=== PATIENT | male | born 1995 ===

== ENCOUNTER 2020-02-02 22:09 | Emergency (ER) | payer OTHER ==
[2020-02-02] MEDS ORDERED: ZIPRASIDONE MESYLATE 20 MG VIAL IM ONE (22:22)
--- NOTE | 2020-02-02 22:26 | Emergency Department Report ---
HPI - General Time Seen by Provider: 02/02/20 22:22 - HPI HPI: 24-year-old male presents to the emergency department via EMS from home for a mental health evaluation. EMS was contacted by family secondary to some bizarre behavior exhibited by the patient over the past few days. He has a history of schizophrenia and has not been taking his risperidone or buspirone for the past 4 months. The patient is oriented to person, place and the name of the president but claims to not know what year it is. When asked why his family may have called EMS the patient says "because I'm a badass motherfucker, that's why." Patient is continuously making some abnormal hand gestures in front of his face. For both family, and upon arrival here, the patient pretends to pass out but remains awake. Patient denies any suicidal or homicidal ideations. ED Past Medical Hx - Medications Home Medications: Home Medications Medication Instructions Recorded Confirmed Last Taken Type Buspirone HCl [busPIRone] 15 mg PO QHS 02/02/20 02/02/20 Unknown History risperiDONE [RisperDAL] 1 mg PO QHS 02/02/20 02/02/20 Unknown History ED Review of Systems ROS: Stated complaint: MH EVAL/OFF MEDS Other details as noted in HPI Comment: Unobtainable due to pts medical conditions Constitutional: denies: fever Respiratory: denies: shortness of breath Cardiovascular: denies: chest pain Neurological: denies: headache Psychiatric: denies: homicidal thoughts, suicidal thoughts Physical Exam - Physical Exam Physical Exam: GENERAL: The patient is well-developed well-nourished. HENT: Normocephalic. Atraumatic. Patient has moist mucous membranes. EYES: Extraocular motions are intact. NECK: Supple. Trachea is midline. CHEST/LUNGS: Clear to auscultation. There is no respiratory distress noted. HEART/CARDIOVASCULAR: Regular. There is mild tachycardia. There is no murmur. ABDOMEN: Abdomen is soft, nontender. Patient has normal bowel sounds. There is no abdominal distention. SKIN: Skin is warm and dry. NEURO: Patient is awake but is not always cooperative. AAO x2 to person and place but not time, but the patient does know the president. Cranial nerves appear intact. MUSCULOSKELETAL: There is no tenderness or deformity. There is no evidence of acute injury. PSYCH: Patient is disorganized. Inappropriate laughter. ED Medical Decision Making - Lab Data Result diagrams: 02/02/20 22:28 02/02/20 22:28 - Medical Decision Making This patient presents for a mental health evaluation. He has history of schizophrenia and has not taken his medications for the last 4 months. His nurse was able to speak with the patient's mother who tells us that the patient has been emotionally labile, ran away for a 3-week period of time, and he is a daily beer drinker. Unknown if he has alcohol dependence but the patient has been placed on CIWA protocol. Patient's labs are mostly unremarkable including CBC, metabolic panel, blood alcohol level and urine drug screen. The patient has been made a 1013 secondary to his acute psychosis as he is unable to care for himself in his current state. He will be seen by the psychiatric team in the morning. This patient is medically cleared for psychiatric placement. Critical Care Time: No Critical care attestation.: If time is entered above; I have spent that time in minutes in the direct care of this critically ill patient, excluding procedure time. ED Disposition Clinical Impression: Acute psychosis Disposition: [id number]/TX-[id number] PSY HOSP/PSY UNIT Is pt being admited?: No Condition: Stable Referrals: PRIMARY MD JOSE [Primary Care Provider] - 3-5 Days Time of Disposition: 05:53
[2020-02-02 23:11] LABS: Basophils # (Auto) 0.1 K/mm3 (0.0-0.1); Basophils % (Auto) 0.9 % (0.0-1.8); Eosinophils # (Auto) 0.1 K/mm3 (0.0-0.4); Eosinophils % (Auto) 0.7 % (0.0-4.3); Hematocrit 46.5 % (35.5-45.6); Hemoglobin 15.4 gm/dl (11.8-15.2); Lymphocytes # (Auto) 4.4 K/mm3 (1.2-5.4); Lymphocytes % (Auto) 33.7 % (13.4-35.0); Mean Corpuscular HGB Conc 33 % (32-34); Mean Corpuscular Volume 83 fl (84-94); Monocytes % (Auto) 7.7 % (0.0-7.3); Platelet Count 361 K/mm3 (140-440); Red Cell Distribution Width 16.5 % (13.2-15.2)
[2020-02-02 23:34] LABS: BUN/Creatinine Ratio 4; Blood Urea Nitrogen 4 mg/dL (9-20); Calcium 9.9 mg/dL (8.4-10.2); Hemolysis Index 2
[2020-02-02 23:58] LABS: Bilirubin,Urine NEG (Negative); Blood,Urine NEG (Negative); Color,Urine Yellow (Yellow); Protein,Urine <15 mg/dL mg/dL (Negative); RBC,Urine < 1.0 /HPF (0.0-6.0); Urobilinogen,Urine < 2.0 mg/dL (<2.0); WBC,Urine < 1.0 /HPF (0.0-6.0)
[2020-02-03 00:06] LABS: Amphetamine Screen,Urine PRESUMPTIVE NEGATIVE; Benzodiazepines Screen,Urine PRESUMPTIVE NEGATIVE; Cannabinoid Screen,Urine PRESUMPTIVE NEGATIVE; Cocaine Screen,Urine PRESUMPTIVE NEGATIVE; Methadone Screen,Urine PRESUMPTIVE NEGATIVE; Opiate Screen,Urine PRESUMPTIVE NEGATIVE
[2020-02-03] MEDS ORDERED: LORazepam 2 MG TAB PO PRN (00:35)
[2020-02-03] MEDS: LORazepam 2 MG TAB PO PRN ×2 (00:55→15:46)
[2020-02-03 07:51] VITALS: BP 118/78
== END 2020-02-03 16:52 ==
LOC: ED 22:09
DX: F23 Brief psychotic disorder (principal); Z98.890 Other specified postprocedural states; Z79.899 Other long term (current) drug therapy
CPT/HCPCS: 36415; 80048; 80307; 81001; 85025; 96372; 99285; J3486; 80320; G0480